=== PATIENT | female | born 1960 | race Caucasian/White ===

== ENCOUNTER 2020-08-17 11:19 | Emergency (ER) | payer SELFPAY ==
[~2020-08-17] VITALS: Ht 154.9 cm; Wt 75.7 kg
[2020-08-17] MEDS ORDERED: ACETAMINOPHEN/CODEINE#3 (300/30mg) TAB PO ONE (14:45)
[2020-08-17 15:22] VITALS: BP 109/80
== END 2020-08-17 15:28 | disposition home or self-care (01) ==
LOC: ER 11:19
DX: S82.832A Other fracture of upper and lower end of left fibula, initial encounter for closed fracture (principal); X50.1XXA Overexertion from prolonged static or awkward postures, initial encounter; Y93.89 Activity, other specified; Y92.89 Other specified places as the place of occurrence of the external cause; Y99.8 Other external cause status
CPT/HCPCS: 29515; 73610; 73630

== ENCOUNTER 2024-12-23 17:43 | Emergency (ER) | payer OTHER ==
[~2024-12-23] VITALS: Ht 154.9 cm; Wt 71.4 kg
[2024-12-23] MEDS ORDERED: SILV1CRE82 TOP (19:14)
[2024-12-23] MEDS ORDERED: HYDR-4902 PO (19:14)
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
[2024-12-23] MEDS: SILVER SULFADIAZINE 1 % TOPICAL CREAM 50GM TOP ONE (21:08)
[2024-12-23 21:10] VITALS: BP 131/88; TEMP 98.3
[2024-12-23 21:12] VITALS: PULSE 85; RESP 16; O2SAT 95
== END 2024-12-23 21:08 | disposition home or self-care (01) ==
LOC: ER 17:43
DX: T21.21XA Burn of second degree of chest wall, initial encounter (principal); T31.0 Burns involving less than 10% of body surface; F41.9 Anxiety disorder, unspecified; Z90.49 Acquired absence of other specified parts of digestive tract; Z90.89 Acquired absence of other organs; X08.8XXA Exposure to other specified smoke, fire and flames, initial encounter; Y93.89 Activity, other specified; Y92.89 Other specified places as the place of occurrence of the external cause; Y99.8 Other external cause status